=== PATIENT | male | born 2005 | race Caucasian/White ===

== ENCOUNTER 2023-04-04 14:34 | Emergency (ER) | payer OTHER ==
[2023-04-04 15:42] LABS: Hematocrit 44.1 % (39.6-49.0); Lymphocytes % 35.2 % (15.3-44.8); MPV 8.5 fL (7.6-11.3); Platelets 210 thou/uL (152-406); RBC Red Blood Cell Count 5.02 M/uL (4.33-5.43)
[2023-04-04] MEDS ORDERED: HYDROCODONE/APAP 10/325 TAB ONE (15:52)
[2023-04-04 15:55] LABS: Potassium 3.7 mEq/L (3.5-5.1)
--- NOTE | 2023-04-04 15:56 | RAD REPORT ---
EXAM DESCRIPTION: CT - Head C Spine Cap Lincoln Nelson - 04/04/2023 3:24 pm CLINICAL HISTORY: Head and neck injury with chest and abdominal pain status post fall. Head and neck pain . TECHNIQUE: Computed axial tomography of the head and cervical spine was obtained Computed axial tomography of the chest, abdomen and pelvis was obtained. 100 cc Isovue-300 was given intravenously coronal and sagittal reconstruction was performed. All CT scans are performed using dose optimization technique as appropriate and may include automated exposure control or mA/KV adjustment according to patient size. COMPARISON: None FINDINGS: An intracranial bleed is not seen. The ventricles are normal in caliber. An extra-axial fl uid collection is not noted. Fluid within the sinuses is not seen A cervical fracture is not seen. No dislocation is seen. A mediastinal hematoma is not noted. A pleural effusion is not present. A lung contusion is not seen. The liver, spleen, pancreas, adrenals, kidneys and bladder do not demonstrate an acute traumatic inju ry Images involving the pelvis are limited secondary to artifact from the overlying and handcuffs IMPRESSION: No acute intracranial abnormality is seen A cervical fracture is not visualized. If the patient continues have symptoms to suggest intracranial /spinal cord pathology then MRI would be recommended. No acute traumatic injury involving the chest, abdomen or pelvis is seen.
--- NOTE | 2023-04-04 15:59 | RAD REPORT ---
EXAM DESCRIPTION: RAD - Shoulder Left 2 View - 04/04/2023 3:36 pm CLINICAL HISTORY: Left shoulder pain status post fall FINDINGS: No fracture or dislocation is seen.
--- NOTE | 2023-04-04 16:20 | EDPHYS ---
Physician Documentation [facility] Name: Hussain Ponce Age: 18 yrs Sex: Male : 2005 Arrival Date: 04/04/2023 Time: 14:34 Bed 10 Private MD: ED Physician Fer Paris HPI: 04/04 15:16 This 18 yrs old Male presents to ER via EMS with complaints of fall from top [place], neck rn injury. 15:16 The patient or guardian complains of an injury, pain. The symptoms are located at the rn cervical spine. Onset: The symptoms/episode began/occurred this morning. Associated signs and symptoms: Pertinent positives: Paresthesias Pertinent negatives: bladder incontinence, bowel incontinence, weakness. The pain does not radiate. Modifying factors: The symptoms are alleviated by nothing. the symptoms are aggravated by nothing. The patient has not experienced similar symptoms in the past. The patient has not recently seen a physician. Patient reports was asleep and fell off of top [employer] in [place] [facility]. Landed with head against the wall. No blood thinners. No other medical problems. Reports headache, neck pain, back pain, rib pain, left shoulder pain. Reports mild numbness and tingling along left collarbone and shoulder. Historical: - Allergies: 14:55 No Known Allergies; cm10 - Home Meds: 14:55 None [Active]; cm10 - PMHx: 14:55 None; cm10 - PSHx: 14:55 None; cm10 - Immunization history:: Adult Immunizations up to date. - Social history:: Smoking status: Patient/guardian denies using tobacco. - Family history:: not pertinent. - Hospitalizations: : No recent hospitalization is reported. ROS: 15:20 Constitutional: Negative for fever, chills, and weight loss, Neck: Positive for neck rn injury and pain Cardiovascular: Positive for posterior rib pain Respiratory: Negative for shortness of breath, cough, wheezing, and pleuritic chest pain, Abdomen/GI: Negative for abdominal pain, nausea, vomiting, diarrhea, and constipation, Back: Positive for mid back pain MS/Extremity: Positive for pain to left shoulder Skin: Negative for injury, rash, and discoloration, Neuro: Positive for headache and paresthesias over left shoulder Exam: 15:20 Constitutional: This is a well developed, well nourished patient who is awake, alert, rn and in no acute distress. Patient ambulatory to room without assistance Head/Face: Normocephalic, atraumatic. Neck: Trachea midline, no crepitus or swelling. In c-collar Chest/axilla: Normal chest wall appearance and motion. Nontender with no deformity. No crepitus or ecchymosis Cardiovascular: Regular rate and rhythm. No pulse deficits. Respiratory: No increased work of breathing, no retractions or nasal flaring. Abdomen/GI: Soft, non-tender Back: No spinal tenderness. MS/ Extremity: Pulses equal, no cyanosis. Neurovascular intact. Full, normal range of motion. Equal circumference. Neuro: Awake and alert, GCS 15, oriented to person, place, time, and situation. Cranial nerves II-XII grossly intact. Motor strength 5/5 in all extremities. Sensory grossly intact. Vital Signs: 14:51 BP 134 / 87; Pulse 63; Resp 16; Temp 98; Pulse Ox 99% ; Weight 74.84 kg; Height 6 ft. 0 cm10 in. ; Pain 8/10; 16:00 BP 124 / 76; Pulse 66; Resp 16; Pulse Ox 99% on R/A; hb 14:51 Body Mass Index 22.38 (74.84 kg, 182.88 cm) cm10 14:51 Pain Scale: Adult cm10 MDM: 14:42 Patient medically screened. rn 16:18 Differential diagnosis: C-Spine Fracture Cervical Disc Herniation Cervical Discogenic rn Pain Cervical Raiculopathy cervical strain, Flexion Teardrop Fracture fracture, Neck Contusion subluxation, torticollis. Data reviewed: vital signs, nurses notes, radiologic studies, CT scan, plain films, and as a result, I will discharge patient. Counseling: I had a detailed discussion with the patient and/or guardian regarding the historical points, exam findings, and any diagnostic results supporting the discharge/admit diagnosis, lab results, radiology results, the need for outpatient follow up, to return to the emergency department if symptoms worsen or persist or if there are any questions or concerns that arise at home. Special discussion: Based on the patient's history, exam and DX evaluation, there is no indication for emergent intervention or inpatient TX. It is understood by the patient/guardian that if the SXs persist or worsen they need to return immediately for re-evaluation. I discussed with the patient/guardian in detail that at this point there is no indication for admission to the hospital. It is understood, however, that if the symptoms persist or worsen the patient needs to return immediately for re-evaluation. 04/04 14:42 Order name: Basic Metabolic Panel; Complete Time: 15:57 rn 04/04 14:42 Order name: CBC with Diff; Complete Time: 15:57 rn 04/04 14:42 Order name: Type And Screen; Complete Time: 16:18 rn 04/04 14:42 Order name: CT Traumagram (Head C Spine CAP W Con); Complete Time: 16:01 rn 04/04 14:59 Order name: Shoulder Left 2 View; Complete Time: 16:01 EDMS 04/04 14:42 Order name: Labs collected and sent; Complete Time: 15:35 rn Administered Medications: 15:43 Drug: Leopold PO 10 mg-325 mg 1 tabs PO once Route: PO; cm10 16:15 Follow up: Response: Adverse reaction, Physician notified; Pain is decreased hb Disposition Summary: 04/04/23 16:20 Discharge Ordered Notes: Location: Home rn Problem: new rn Symptoms: have improved rn Condition: Stable rn Diagnosis - Sprain of joints and ligaments of other parts of neck, initial encounter rn - Contusion of back wall of thorax rn - Other sprain of left shoulder joint rn Followup: rn - With: Private Physician - When: As needed - Reason: Recheck today's complaints, Re-evaluation by your physician Discharge Instructions: - Discharge Summary Sheet rn - Contusion rn - Cervical Sprain rn Forms: - Medication Reconciliation Form rn - Thank You Letter rn - Antibiotic house rn - Prescription Opioid Use rn - Patient Portal Instructions rn - Leadership Thank You Letter rn Signatures: Dispatcher [employer] EDMS Fer Paris MD MD rn Martinez, Clarissa, RN RN cm10 Megan Lee RN hb Corrections: (The following items were deleted from the chart) 15:19 15:18 Head C Spine Cap W Con ordered. EDMS EDMS 15:38 15:16 Shoulder Left 2 View+RAD.RAD.BRZ ordered. EDMS EDMS
--- NOTE | 2023-04-04 16:20 | ER ---
Nurse's Notes [facility] Name: Hussain Ponce Age: 18 yrs Sex: Male : 2005 Arrival Date: 04/04/2023 Time: 14:34 Bed 10 Private MD: Diagnosis: Sprain of joints and ligaments of other parts of neck, initial encounter;Contusion of back wall of thorax;Other sprain of left shoulder joint Presentation: 04/04 14:51 Chief complaint: Patient states: Rolled out of bed this morning, hit his head +LOC. Pt cm10 complaining of pain to left side of body. Pt arrived via [facility] from [facility]. Pt A\T\Ox4. C-Collar in place on arrival. Coronavirus screen: Vaccine status: Patient reports receiving the 2nd dose of the covid vaccine. Ebola Screen: Patient denies travel to an Ebola-affected area in the 21 days before illness onset. No symptoms or risks identified at this time. Initial Sepsis Screen: Does the patient meet any 2 criteria? No. Patient's initial sepsis screen is negative. Does the patient have a suspected source of infection? No. Patient's initial sepsis screen is negative. Risk Assessment: Do you want to hurt yourself or someone else? Patient reports no desire to harm self or others. Onset of symptoms was April 04, 2023. 14:51 Method Of Arrival: EMS: [facility] #[id number] 14:51 Acuity: JOSE 3 cm10 Triage Assessment: 14:55 General: Appears in no apparent distress. comfortable, Behavior is calm, cooperative. cm10 Pain: Complains of pain in face, left arm and left leg. Neuro: No deficits noted. Level of Consciousness is awake, alert, obeys commands, Oriented to person, place, time, situation. Respiratory: No deficits noted. Airway is patent Respiratory effort is even, unlabored, Respiratory pattern is regular, symmetrical. Historical: - Allergies: 14:55 No Known Allergies; cm10 - Home Meds: 14:55 None [Active]; cm10 - PMHx: 14:55 None; cm10 - PSHx: 14:55 None; cm10 - Immunization history:: Adult Immunizations up to date. - Social history:: Smoking status: Patient/guardian denies using tobacco. - Family history:: not pertinent. - Hospitalizations: : No recent hospitalization is reported. Screenin:28 [facility] ED Fall Risk Assessment (Adult) History of falling in the last 3 months, cm10 including since admission Yes- single mechanical fall (1 pt) Confusion or Disorientation No (0 pts) Intoxicated or Sedated No (0 pts) Impaired Gait No (0 pts) Mobility Assist Device Used No (0 pt) Altered Elimination No (0 pt) Score/Fall Risk Level 0 - 2 = Low Risk Oriented to surroundings, Maintained a safe environment, Hourly rounding (assess needs \T\ fall precautionary measures) done. Abuse screen: Denies threats or abuse. Denies injuries from another. Nutritional screening: No deficits noted. Tuberculosis screening: No symptoms or risk factors identified. Assessment: 15:30 General: Appears in no apparent distress. Behavior is calm, cooperative. Pain: Pain hb currently is 8 out of 10 on a pain scale. Neuro: Level of Consciousness is awake, alert, obeys commands, Oriented to person, place, time, situation, Reports headache. Cardiovascular: Patient's skin is warm and dry. Respiratory: Respiratory effort is even, unlabored, Respiratory pattern is regular, symmetrical. GI: No signs and/or symptoms were reported involving the gastrointestinal system. : No signs and/or symptoms were reported regarding the genitourinary system. EENT: No signs and/or symptoms were reported regarding the EENT system. Derm: Skin is pink, warm \T\ dry. Musculoskeletal: No signs and/or symptoms reported regarding the musculoskeletal system. 16:30 Reassessment: Patient appears in no apparent distress at this time. Patient and/or hb family updated on plan of care and expected duration. Pain level reassessed. Patient is alert, oriented x 3, equal unlabored respirations, skin warm/dry/pink. Vital Signs: 14:51 BP 134 / 87; Pulse 63; Resp 16; Temp 98; Pulse Ox 99% ; Weight 74.84 kg; Height 6 ft. 0 cm10 in. ; Pain 8/10; 16:00 BP 124 / 76; Pulse 66; Resp 16; Pulse Ox 99% on R/A; hb 14:51 Body Mass Index 22.38 (74.84 kg, 182.88 cm) cm10 14:51 Pain Scale: Adult cm10 ED Course: 14:41 Patient arrived in ED. rn 14:42 Fer Paris MD is Attending Physician. rn 14:54 Triage completed. cm10 14:55 Arm band placed on Patient placed in an exam room, on a stretcher. cm10 15:23 Inserted saline lock: 22 gauge in left antecubital area, using aseptic technique. Blood cm10 collected. 15:26 CT Traumagram (Head C Spine CAP W Con) In Process Unspecified. EDMS 15:28 Patient has correct armband on for positive identification. Call light in reach. Side cm10 rails up X2. Security at bedside. Provided Education on: ED process and procedures.. 15:35 Basic Metabolic Panel Sent. cm10 15:35 CBC with Diff Sent. cm10 15:35 Type And Screen Sent. cm10 15:38 Shoulder Left 2 View In Process Unspecified. EDMS 16:45 No provider procedures requiring assistance completed. IV discontinued, intact, hb bleeding controlled, No redness/swelling at site. 16:56 Megan Lee, RN is Primary Nurse. hb Administered Medications: 15:43 Drug: [place] PO 10 mg-325 mg 1 tabs PO once Route: PO; cm10 16:15 Follow up: Response: Adverse reaction, Physician notified; Pain is decreased hb Medication: 16:00 VIS not applicable for this client. hb Outcome: 16:20 Discharge ordered by . rn 16:50 Discharged to Law Enforcement hb 16:50 Condition: stable hb 16:50 Discharge instructions given to patient, police, Instructed on discharge instructions, follow up and referral plans. Demonstrated understanding of instructions, follow-up care, 16:56 Patient left the ED. hb Signatures: Dispatcher [employer] EDNM Fer Paris MD MD rn Baxter, Heather RN Kylie Lawler RN RN cm10 Corrections: (The following items were deleted from the chart) 14:56 14:51 Chief complaint: Patient states: Rolled out of bed this morning, hit his head cm10 +LOC. Pt complaining of pain to left side of body. Pt arrived via [facility] from [facility]. Pt A\T\Ox4. cm10
[2023-04-04 17:16] VITALS: BP 134/87; TEMP 98; O2SAT 99
== END 2023-04-04 16:56 | disposition home or self-care (01) ==
LOC: ER 14:34
DX: S13.8XXA Sprain of joints and ligaments of other parts of neck, initial encounter (principal); S43.492A Other sprain of left shoulder joint, initial encounter; S20.222A Contusion of left back wall of thorax, initial encounter
CPT/HCPCS: 85025; 80048; 36415; 86900; 86850; 86901; 70450; 72125; 71260; 74177; 73030; 99285; Q9967